=== PATIENT | male | born 1950 | race Caucasian/White ===

== ENCOUNTER 2019-05-14 15:05 | Emergency (ER) | payer OTHER ==
[~2019-05-14] VITALS: Ht 177 cm; Wt 109.8 kg
--- NOTE | 2019-05-14 15:25 | ED GU-Male ---
General Chief Complaint: - Urinary Stated Complaint: TROUBLE URINATING History of Present Illness Date Seen by Provider: May 14, 2019 Time Seen by Provider: 15:26 Initial Comments 68 yo male no prior visits in this sytem seems to describe chronic sx's of prostatism episodes of retention decreased stream etc. worsening in the last 4 days has HTN and diabetes, is already on on flomax has been dx'd with UTI finished antibiotic and diflucan about 10 d ago he states today he went several hours unable to void Apparently he presented to his primary physician's office having distress and high blood pressure, so sent to the ER However he says in the interim it "broke loose" and he was able to empty his bladder he is now comfortable again he feels the source of his difficulty is a recurrent infection he says the only time he ever had to have a catheter was when he had surgery in the past he's had lower back surgery but that was many years ago It also sounds like he has chronic balanitis has used nystatin on an off for months a urethral stricture might be a possibility Allergies and Home Medications Allergies Coded Allergies: No Known Drug Allergies (Unverified , 05/14/19) Home Medications Fluconazole 100 Mg Tablet, 100 MG PO DAILY Prescribed by: KEARA KESSLER on 05/14/191708 Levofloxacin 500 Mg Tablet, 500 MG PO DAILY Prescribed by: KEARA KESSLER on 05/14/191708 Patient Home Medication List Home Medication List Reviewed: Yes Review of Systems Review of Systems Constitutional: No chills, No fever EENTM: no symptoms reported Respiratory: no symptoms reported Cardiovascular: no symptoms reported Gastrointestinal: No abdominal pain, No diarrhea, No nausea, No vomiting Genitourinary: burning (from balanitis); denies discharge, denies dysuria; incontinence, urgency Musculoskeletal: no symptoms reported Skin: no symptoms reported Endocrine: No Symptoms Reported Hematologic/Lymphatic: No Symptoms Reported Past Zskmrqp-Kdrhln-[place] Hx Patient Social History Recent Foreign Travel: No Contact w/Someone Who Travel: No Physical Exam Vital Signs Vital Signs - First Documented 05/14/19 15:15 Temp 36.2 Pulse 89 Resp 16 B/P (MAP) 153/81 (105) Pulse Ox 94 Capillary Refill : Height, Weight, BMI Height: '" Weight: lbs. oz. kg; BMI Method: General Appearance: WD/WN, no apparent distress Neck: supple Cardiovascular: regular rate, rhythm Respiratory: lungs clear, normal breath sounds Gastrointestinal: non tender, soft Male: other (pt does not seem to have a distended or tender bladder CVAs are negative abdomina is obese and protuberant but benign exam + chronic looking balanitis) Back: no CVA tenderness Focused Exam Lactate Level 05/14/19 16:14: Lactic Acid Level 1.00 Lactic Acid Level Laboratory Tests Test 05/14/19 16:14 Lactic Acid Level 1.00 MMOL/L (0.50-2.00) Progress/Results/Core Measures Suspected Sepsis SIRS Temperature: Pulse: Respiratory Rate: Laboratory Tests 05/14/19 16:14: White Blood Count 13.2H Blood Pressure / Mean: 05/14/19 16:14: Lactic Acid Level 1.00 Laboratory Tests 05/14/19 16:14: Creatinine 0.90, Platelet Count 228 Results/Orders Lab Results Laboratory Tests Test 05/14/19 15:43 05/14/19 16:14 Range/Units Urine Color YELLOW Urine Clarity CLOUDY H Urine pH 6.0 5-9 Urine Specific [place] 1.015 L 1.016-1.022 Urine Protein NEGATIVE NEGATIVE Urine Glucose (UA) NEGATIVE NEGATIVE Urine Ketones NEGATIVE NEGATIVE Urine Nitrite POSITIVE H NEGATIVE Urine Bilirubin NEGATIVE NEGATIVE Urine Urobilinogen 0.2 < = 1.0 MG/DL Urine Leukocyte Esterase 3+ H NEGATIVE Urine RBC (Auto) 2+ H NEGATIVE Urine RBC 0-2 /HPF Urine WBC TNTC H /HPF Urine Squamous Epithelial Cells 0-2 /HPF Urine Crystals NONE /LPF Urine Bacteria LARGE H /HPF Urine Casts NONE /LPF Urine Mucus NEGATIVE /LPF Urine Culture Indicated YES White Blood Count 13.2 H 4.3-11.0 10^3/uL Red Blood Count 5.08 4.35-5.85 10^6/uL Hemoglobin 14.7 13.3-17.7 G/DL Hematocrit 43 40-54 % Mean Corpuscular Volume 85 80-99 FL Mean Corpuscular Hemoglobin 29 25-34 PG Mean Corpuscular Hemoglobin Concent 34 32-36 G/DL Red Cell Distribution Width 12.3 10.0-14.5 % Platelet Count 228 130-400 10^3/uL Mean Platelet Volume 9.5 7.4-10.4 FL Neutrophils (%) (Auto) 83 H 42-75 % Lymphocytes (%) (Auto) 9 L 12-44 % Monocytes (%) (Auto) 7 0-12 % Eosinophils (%) (Auto) 1 0-10 % Basophils (%) (Auto) 0 0-10 % Neutrophils # (Auto) 11.0 H 1.8-7.8 X 10^3 Lymphocytes # (Auto) 1.2 1.0-4.0 X 10^3 Monocytes # (Auto) 0.9 0.0-1.0 X 10^3 Eosinophils # (Auto) 0.1 0.0-0.3 10^3/uL Basophils # (Auto) 0.0 0.0-0.1 10^3/uL Sodium Level 139 135-145 MMOL/L Potassium Level 4.1 3.6-5.0 MMOL/L Chloride Level 102 98-107 MMOL/L Carbon Dioxide Level 23 21-32 MMOL/L Anion Gap 14 5-14 MMOL/L Blood Urea Nitrogen 15 7-18 MG/DL Creatinine 0.90 0.60-1.30 MG/DL Estimat Glomerular Filtration Rate > 60 BUN/Creatinine Ratio 17 Glucose Level 125 H 70-105 MG/DL Lactic Acid Level 1.00 0.50-2.00 MMOL/L Calcium Level 9.8 8.5-10.1 MG/DL My Orders Orders - KEARA KESSLER MD Bladder Scan (05/14/19 15:10) Urinalysis (05/14/19 15:25) Urine Culture (05/14/19 15:43) Iv Heplock-Insert (Order) (05/14/19 16:11) Cbc With Automated Diff (05/14/19 16:11) Basic Metabolic Panel (05/14/19 16:11) Levofloxacin 750 Mg/150 Ml Iv (Levaquin (05/14/19 16:15) Ns Iv 1000 Ml (Sodium Chloride 0.9%) (05/14/19 16:15) Blood Culture (05/14/19 16:11) Lactic Acid Analyzer (05/14/19 16:11) Blood Culture (05/14/19 16:38) Medications Given in ED Current Medications Medications Dose Ordered Sig/Alex Route Start Time Stop Time Status Last Admin Dose Admin Levofloxacin/ Dextrose 150 ml @ 100 mls/hr ONCE ONCE IV 05/14/19 16:15 05/14/19 17:44 05/14/19 16:55 100 MLS/HR Vital Signs/I&O 05/14/19 15:15 Temp 36.2 Pulse 89 Resp 16 B/P (MAP) 153/81 (105) Pulse Ox 94 Capillary Refill : Progress Note : Progress Note bladder scan 300mlUA - 1.015 + nitrite + leuk est TNTC WBC's and large bact Get blood cultures and lactate check CBC check blood sugar IV Levaquin has been ordered Patient does not have retention symptoms at this point is comfortable therefore it's thought best probably not to place a catheter as long as he continues to be able to void so as not to seed infection further Hemoglobin 14.7 white count 13,200 lactate 1.0 BMP neg Departure Impression Primary Impression: Urinary tract infection Qualified Codes: N30.01 - Acute cystitis with hematuria Disposition: HOME, SELF-CARE Condition: Stable Departure-Patient Inst. Decision time for Depature: 17:05 Patient Instructions: Urinary Tract Infection, Adult (DC), Urinary Obstruction (DC) Add. Discharge Instructions: We found urinary infection and you have had a chronic fungal infection, therefore an antibiotic prescription was written, as well as Diflucan, also pleased continue the flomax 0.4mg daily You may have some overgrowth of the prostate interfering with voiding or possibly a scarring or narrowing within the penis itself If you get to where you can't empty your bladder at all, you may need to have Arellano Catheter placed We strongly advise that you make an appointment and see a urologist as soon as you are able to arrange that Dr. Kang [phone] Scripts Fluconazole (Diflucan) 100 Mg Tablet 100 MG PO DAILY, #5 TAB Prov: KEARA KESSLER MD 05/14/19 Levofloxacin (Levaquin) 500 Mg Tablet 500 MG PO DAILY for 10 Days, #10 TAB Prov: KEARA KESSLER MD 05/14/19 KEARA KESSLER MD May 14, 2019 15:25
[2019-05-14 15:58] LABS: BACTERIA,URINE LARGE /HPF; BILIRUBIN,URINE NEGATIVE (NEGATIVE); CLARITY,URINE CLOUDY; COLOR,URINE YELLOW; GLUCOSE, URINE (UA) NEGATIVE (NEGATIVE); KETONES,URINE NEGATIVE (NEGATIVE); LEUKOCYTE ESTERASE ,URINE 3+ (NEGATIVE); NITRITE,URINE POSITIVE (NEGATIVE); PROTEIN,URINE NEGATIVE (NEGATIVE); RBC,URINE 0-2 /HPF; SQUAMOUS EPITHELIAL CELL,UR 0-2 /HPF; WBC,URINE TNTC /HPF
[2019-05-14] MEDS ORDERED: NS IV 1000 ML 1,000 ML IV SCH (16:15)
[2019-05-14] MEDS: LEVOFLOXACIN 750 MG/150 ML IV 150 ML IV ONE ×2 (16:40→16:55)
[2019-05-14 16:56] LABS: HEMATOCRIT 43 % (40-54); HEMOGLOBIN 14.7 G/DL (13.3-17.7); MEAN CORPUSCULAR HEMOGLOBIN 29 PG (25-34); MEAN CORPUSCULAR HGB CONC 34 G/DL (32-36); MEAN CORPUSCULAR VOLUME 85 FL (80-99); PLATELET COUNT 228 10^3/uL (130-400); RED CELL DISTRIBUTION WIDTH 12.3 % (10.0-14.5); WHITE BLOOD COUNT 13.2 10^3/uL (4.3-11.0)
[2019-05-14 16:57] LABS: BASOPHILS % (AUTO) 0 % (0-10); EOSINOPHILS # (AUTO) 0.1 10^3/uL (0.0-0.3); EOSINOPHILS % (AUTO) 1 % (0-10); LYMPHOCYTES # (AUTO) 1.2 X 10^3 (1.0-4.0); LYMPHOCYTES % (AUTO) 9 % (12-44); MEAN PLATELET VOLUME 9.5 FL (7.4-10.4); MONOCYTES # (AUTO) 0.9 X 10^3 (0.0-1.0); MONOCYTES % (AUTO) 7 % (0-12); NEUTROPHILS % (AUTO) 83 % (42-75)
[2019-05-14 17:02] LABS: CARBON DIOXIDE 23 MMOL/L (21-32); CHLORIDE 102 MMOL/L (98-107); POTASSIUM 4.1 MMOL/L (3.6-5.0); SODIUM 139 MMOL/L (135-145)
[2019-05-14 17:03] LABS: BUN/CREATININE RATIO 17; CALCIUM 9.8 MG/DL (8.5-10.1); GFR ESTIMATED > 60; GLUCOSE 125 MG/DL (70-105)
[2019-05-14] MEDS ORDERED: FLUC100T PO (17:09)
[2019-05-14] MEDS ORDERED: LEVO500T2 PO (17:09)
[2019-05-14 17:41] VITALS: BP 112/47
== END 2019-05-14 17:49 | disposition home or self-care (01) ==
LOC: EDUNIT# 15:05 → ER FS 15:07
DX: N39.0 Urinary tract infection, site not specified (principal); I10 Essential (primary) hypertension
CPT/HCPCS: 36415; 80048; 81000; 83605; 85025; 87040; 87077; 87088; 87186; 96361; 96365

== ENCOUNTER 2019-05-17 17:46 | Emergency (ER) | payer OTHER ==
[~2019-05-17] VITALS: Ht 177.8 cm; Wt 109.9 kg
[~2019-05-17 17:46] MED LIST: FLUC100T PO; LEVO500T2 PO
--- NOTE | 2019-05-17 18:36 | ED GU-Male ---
General Chief Complaint: - Urinary Stated Complaint: CATH PROBLEM History of Present Illness Date Seen by Provider: May 17, 2019 Time Seen by Provider: 18:00 Initial Comments Has had problems with intermittent urinary retention also has had fungal in fection on the distal head of his penis he is on Diflucan tamsulosin and levofloxacin. Was seen just the other day today felt full and like it was cramping but also had 134 cc on bladder scan Timing/Duration: this afternoon Severity/Quality: mild Location: suprapubic Radiation: none Prior Genitourinary Problems: similar symptoms Modifying Factors: Improves With Urinating Associated Symptoms: No fever/chills, No lower back pain Allergies and Home Medications Allergies Coded Allergies: No Known Drug Allergies (Unverified , 05/14/19) Home Medications Fluconazole 100 Mg Tablet, 100 MG PO DAILY Prescribed by: KEARA KESSLER on 05/14/191708 Levofloxacin 500 Mg Tablet, 500 MG PO DAILY Prescribed by: KEARA KESSLER on 05/14/19 170 Patient Home Medication List Home Medication List Reviewed: Yes Review of Systems Review of Systems Constitutional: No chills, No fever Genitourinary: denies burning; dysuria, frequency, pain, urgency Musculoskeletal: No joint swelling, No muscle pain Skin: No rash Past Mksaivb-Oufsmn-Lmiejd Hx Past Med/Social Hx: Reviewed Nursing Past Med/Soc Hx Patient Social History Alcohol Use: Denies Use Recreational Drug Use: No Smoking Status: Former Smoker Type Used: Cigarettes Former Smoker, Quit: Apr 15, 1999 2nd Hand Smoke Exposure: No Recent Foreign Travel: No Recent Hopitalizations: No Physical Abuse: No Sexual Abuse: No Mistreated: No Fear: No Seasonal Allergies Seasonal Allergies: No Past Medical History Surgeries: Yes (back surgery) Respiratory: No Cardiac: Yes Hypertension Neurological: No Genitourinary: Yes (urinary retention) Bladder Infection Gastrointestinal: No Musculoskeletal: Yes Chronic Back Pain Endocrine: No HEENT: No Cancer: No Psychosocial: No Integumentary: No Blood Disorders: No Physical Exam Vital Signs Capillary Refill : Height, Weight, BMI Height: '" Weight: lbs. oz. kg; 35.00 BMI Method: General Appearance: WD/WN, no apparent distress HEENT: PERRL/EOMI, TMs normal, pharynx normal Cardiovascular: regular rate, rhythm, no murmur Respiratory: lungs clear, normal breath sounds Gastrointestinal: non tender, soft Extremities: normal inspection, no pedal edema Neurologic/Psychiatric: normal mood/affect, oriented x 3 Skin: normal color, warm/dry Progress/Results/Core Measures Suspected Sepsis SIRS Temperature: Pulse: Respiratory Rate: Blood Pressure / Mean: Results/Orders Lab Results Laboratory Tests Test 05/17/19 18:25 Range/Units Urine Color YELLOW Urine Clarity CLEAR Urine pH 5.5 5-9 Urine Specific [place] 1.010 L 1.016-1.022 Urine Protein NEGATIVE NEGATIVE Urine Glucose (UA) NEGATIVE NEGATIVE Urine Ketones NEGATIVE NEGATIVE Urine Nitrite NEGATIVE NEGATIVE Urine Bilirubin NEGATIVE NEGATIVE Urine Urobilinogen 0.2 < = 1.0 MG/DL Urine Leukocyte Esterase 1+ H NEGATIVE Urine RBC (Auto) NEGATIVE NEGATIVE Urine RBC NONE /HPF Urine WBC 5-10 H /HPF Urine Squamous Epithelial Cells 2-5 /HPF Urine Crystals NONE /LPF Urine Bacteria FEW H /HPF Urine Casts NONE /LPF Urine Mucus NEGATIVE /LPF Urine Culture Indicated YES My Orders Orders - ALEE ECHAVARRIA JR, MD Urinalysis (05/17/19 18:31) Urine Culture (05/17/19 18:25) Vital Signs/I&O Capillary Refill : Progress Note : Time: 19:01 Progress Note Feel like the patient's antibiotic treatments are adequate is on the tamsulosin didn't feel like he has residual and does need to see the urologist which he is set up for will continue the antibiotic and follow with his PCP in the next week Departure Impression Primary Impression: Urinary tract infection Qualified Codes: N30.00 - Acute cystitis without hematuria Disposition: HOME, SELF-CARE Condition: Stable Departure-Patient Inst. Referrals: EMERALD GOLD DO (PCP/Family) Primary Care Physician Patient Instructions: Urinary Tract Infection, Adult (DC) ALEE ECHAVARRIA JR, MD May 17, 2019 18:36
[2019-05-17 18:48] LABS: BACTERIA,URINE FEW /HPF; BILIRUBIN,URINE NEGATIVE (NEGATIVE); CLARITY,URINE CLEAR; COLOR,URINE YELLOW; GLUCOSE, URINE (UA) NEGATIVE (NEGATIVE); KETONES,URINE NEGATIVE (NEGATIVE); LEUKOCYTE ESTERASE ,URINE 1+ (NEGATIVE); NITRITE,URINE NEGATIVE (NEGATIVE); PH,URINE 5.5 (5-9); PROTEIN,URINE NEGATIVE (NEGATIVE)
[2019-05-17 19:07] VITALS: BP 194/62
== END 2019-05-17 19:07 | disposition home or self-care (01) ==
LOC: EDUNIT# 17:46 → ER FS 17:48
DX: N39.0 Urinary tract infection, site not specified (principal); Z87.891 Personal history of nicotine dependence
CPT/HCPCS: 81000; 87088; 99282

== ENCOUNTER → 2019-06-09 | Outpatient (CLI) | payer MEDICARE, OTHER ==
--- NOTE | 2019-06-09 10:20 | Diagnostic Imaging Report ---
PROCEDURE: CT abdomen and pelvis without contrast. TECHNIQUE: Multiple contiguous axial images were obtained through the abdomen and pelvis without the use of intravenous contrast. Auto Exposure Controls were utilized during the CT exam to meet ALARA standards for radiation dose reduction. INDICATION: Frequent UTIs. FINDINGS: There is some mild thickening of the bhat of the urinary bladder. No definite perivesical edema, however cystitis could not be excluded. Equivocal findings for a punctate 1 mm nonobstructing stone within the right renal midpole. No definite radiodense urolithiases. No perinephric or periureteric edema, urinoma, or other fluid collection. There is no bowel, biliary, or urinary tract obstruction. Liver, spleen, adrenals, pancreas, and gallbladder are unremarkable. The atherosclerotic aorta is nonaneurysmal. IMPRESSION: Thickening of the bhat of the urinary bladder, cystitis not excluded. Equivocal findings for punctate nonobstructing solitary 1 mm right renal calculus. No other potential urinary tract pathology revealed. Dictated by: Dictated on workstation # [id number]
== END ==
LOC: RAD FS 09:34
PROVIDERS: ATTEND Urology
DX: N20.0 Calculus of kidney (principal); N32.89 Other specified disorders of bladder
CPT/HCPCS: 74176

== ENCOUNTER 2019-06-28 11:28 | Emergency (ER) | payer MEDICARE ==
[~2019-06-28] VITALS: Ht 176 cm; Wt 110.9 kg
--- NOTE | 2019-06-28 11:42 | ED GU-Male ---
General Stated Complaint: UNABLE TO URINATE History of Present Illness Date Seen by Provider: Jun 28, 2019 Time Seen by Provider: 11:41 Initial Comments This patient is a 68-year-old male that has a long history of difficulty urinating. Patient is followed by Dr. Lupe Alcala. Urology. Patient has a scheduled appointment tomorrow. The patient has had 3 Arellano catheterization as many weeks due to urinary retention and difficulty urinating. Patient's last catheter was removed 1 week ago. Patient states unable to urinate as "days. Will do medical evaluation treat as needed. Timing/Duration: getting worse, changing over time Severity/Quality: moderate Location: suprapubic Radiation: none Activities at Onset: none Prior Genitourinary Problems: similar symptoms Allergies and Home Medications Allergies Coded Allergies: No Known Drug Allergies (Unverified , 05/14/19) Home Medications Fluconazole 100 Mg Tablet, 100 MG PO DAILY Prescribed by: KAERA KESSLER on 05/14/191708 Levofloxacin 500 Mg Tablet, 500 MG PO DAILY Prescribed by: KEARA KESSLER on 05/14/191708 Patient Home Medication List Home Medication List Reviewed: Yes Review of Systems Review of Systems Constitutional: no symptoms reported, see HPI; No chills, No diaphoresis, No dizziness, No fever, No malaise, No weakness, No weight gain, No weight loss, No other EENTM: No see HPI, No no symptoms reported, No ear discharge, No hearing loss, No ear pain, No blurred vision, No double vision, No eye pain, No tearing, No vision loss, No dental problems, No hoarseness, No mouth pain, No mouth swellin g, No epistaxis, No nose congestion, No nose pain, No throat pain, No throat swelling, No other Respiratory: no symptoms reported; No see HPI, No cough, No dyspnea on exertion, No hemoptysis, No orthopnea, No phlegm, No short of breath, No stridor, No wheezing, No other Cardiovascular: no symptoms reported; No see HPI, No chest pain, No edema, No Hx of Intervention, No palpitations, No syncope, No vascular heart diseas, No other Gastrointestinal: No RUQ, No LUQ, No RLQ, No LLQ; no symptoms reported; No see HPI, No abdominal pain, No constipation, No diarrhea, No dysphagia, No hematemesis, No heartburn, No jaundice, No loss of appetite, No melena, No nausea, No vomiting, No other Genitourinary: denies no symptoms reported; see HPI; denies burning, denies discharge, denies dysuria, denies frequency, denies flank pain, denies hematuria, denies incontinence, denies pain; urgency; denies other Past Eguvdcw-Rbwxdg-Sxyrpc Hx Patient Social History Type Used: Cigarettes Former Smoker, Quit: Apr 15, 1999 2nd Hand Smoke Exposure: No Recent Hopitalizations: No Seasonal Allergies Seasonal Allergies: No Past Medical History Surgeries: Yes (back surgery) Respiratory: No Cardiac: Yes Hypertension Neurological: No Genitourinary: Yes (urinary retention) Bladder Infection Gastrointestinal: No Musculoskeletal: Yes Chronic Back Pain Endocrine: No HEENT: No Cancer: No Psychosocial: No Integumentary: No Blood Disorders: No Physical Exam Vital Signs Vital Signs - First Documented 06/28/19 11:33 Temp 37.0 Pulse 88 Resp 18 B/P (MAP) 184/102 (129) Pulse Ox 98 O2 Delivery Room Air Capillary Refill : Height, Weight, BMI Height: '" Weight: lbs. oz. kg; 34.00 BMI Method: General Appearance: WD/WN, no apparent distress HEENT: PERRL/EOMI, normal ENT inspection, TMs normal, pharynx normal Neck: non-tender, full range of motion, supple, normal inspection Cardiovascular: normal peripheral pulses, regular rate, rhythm, no edema, no gallop, no JVD, no murmur Respiratory: chest non-tender, lungs clear, normal breath sounds, no respiratory distress, no accessory muscle use Skin: normal color, warm/dry Progress/Results/Core Measures Suspected Sepsis SIRS Temperature: Pulse: Respiratory Rate: Blood Pressure / Mean: Results/Orders My Orders Orders - BRADFORD SANDOVAL MD Ua Culture If Indicated (06/28/19 11:39) Catheter(Urinary) Insert & Ass (06/28/19 11:39) Vital Signs/I&O 06/28/19 11:33 Temp 37.0 Pulse 88 Resp 18 B/P (MAP) 184/102 (129) Pulse Ox 98 O2 Delivery Room Air Capillary Refill : Progress Note : Time: 12:25 Progress Note Discussed at length with Dr. Rodriguez alaina Guerrero. He is agreed to accept this patient in the emergency department. Patient in multiple times for catheter placement in the emergency department with significant resistance just inside the meatus. Small scattered lesions 14 [place]. Also discussed at length with Dr. Edwards ER physician also has accepted the patient. Departure Impression Primary Impression: Urinary retention Disposition: XF [facility] HOSP Condition: Stable Transfer Transfer Reason: Exceeds level of care Time Spoke to Accepting Phy: 12:20 Transfer Progress Notes I discussed at length with Dr. Rodriguez urology and Dr. Sinha ER physician Edilson Guerrero they have accepted this patient to the emergency department Method of Transfer: EMS Departure-Patient Inst. Referrals: EMERALD GOLD DO (PCP/Family) Primary Care Physician Patient Instructions: Urinary Retention BRADFORD SANDOVAL MD Jun 28, 2019 11:42
--- NOTE | 2019-06-28 11:50 | NUR ---
Urinary catheter insertion attempted at this time. Intial attempt of 16F urethral catheter unsuccessful as resistance was almost immediately met. 16F coude also attempted and unsuccesful as well as smaller 14F catheter.
[2019-06-28 12:45] VITALS: BP 179/96
[2019-06-28 12:51] LABS: BILIRUBIN,URINE NEGATIVE (NEGATIVE); CLARITY,URINE CLEAR; COLOR,URINE YELLOW; GLUCOSE, URINE (UA) NEGATIVE (NEGATIVE); KETONES,URINE NEGATIVE (NEGATIVE); LEUKOCYTE ESTERASE ,URINE TRACE (NEGATIVE); NITRITE,URINE NEGATIVE (NEGATIVE); PROTEIN,URINE NEGATIVE (NEGATIVE)
[2019-06-28 12:52] LABS: BACTERIA,URINE NEGATIVE /HPF; SQUAMOUS EPITHELIAL CELL,UR 0-2 /HPF; WBC,URINE 0-2 /HPF
--- OUTSIDE RECORDS SUMMARY | 2019-06-29 01:12 | XMS REPORT | Continuity of Care Document ---
Author Organization Unknown Address Unknown Phone Unavailable Allergies Active Description Code Type Severity Reaction Onset Reported/Identified Relationship to Patient Clinical Status Yes No Known Drug Allergies [id number] Drug Allergy Unknown N/A 05/14/2019 Medications There is no data. Problems Date Dx Coded Attending Type Code Diagnosis Diagnosed By 05/14/2019 KEARA KESSLER MD Ot I10 ESSENTIAL (PRIMARY) HYPERTENSION 05/14/2019 KEARA KESSLER MD Ot N39. 0 URINARY TRACT INFECTION, SITE NOT SPECIF 05/14/2019 KEARA KESSLER MD Ot R30. 0 DYSURIA 05/17/2019 ALEE ECHAVARRIA MD Ot N39.0 URINARY TRACT INFECTION, SITE NOT SPECIF 05/17/2019 ALEE ECHAVARRIA MD L Ot R33.9 RETENTION OF URINE, UNSPECIFIED 05/17/2019 JERICHO ABBASI ALEE L Ot Z87.891 PERSONAL HISTORY OF NICOTINE DEPENDENCE 05/18/2019 KEARA KESSLER MD Ot I10 ESSENTIAL (PRIMARY) HYPERTENSION 05/18/2019 KEARA KESSLER MD Ot N39. 0 URINARY TRACT INFECTION, SITE NOT SPECIF 05/18/2019 KEARA KESSLER MD Ot R30. 0 DYSURIA 06/12/2019 BRANDON MILLER MD Ot N20.0 CALCULUS OF KIDNEY 06/12/2019 BRANDON MILLER MD Ot N32.8 9 OTHER SPECIFIED DISORDERS OF BLADDER 06/24/2019 BRANDON MILLER MD Ot N20.0 CALCULUS OF KIDNEY 06/24/2019 BRANDON MILLER MD Ot N32.8 9 OTHER SPECIFIED DISORDERS OF BLADDER Procedures There is no data. Results Test Result Range Complete urinalysis with reflex to cultu re - 05/14/19 15:43 Urine color determination YELLOW NRG Urine clarity determination CLOUDY NR G Urine pH measurement by test strip 6.0 5-9 Specific gravity of urine by test strip 1.015 1.016-1.022 Urine protein assay by test strip, semi-quantitative NEGATIVE NEGATIVE Urine glucose detection by automated test strip NE GATIVE NEGATIVE Erythrocytes detection in urine sediment by light micr oscopy 2+ NEGATIVE Urine ketones detection by automated test strip NE GATIVE NEGATIVE Urine nitrite detection by test strip POSITIVE NEGATIVE Urine total bilirubin detection by test strip NEGA TIVE NEGATIVE Urine urobilinogen measurement by automated test strip (mass/volume) 0.2 mg/dL < = 1.0 Urine leukocyte esterase detection by dipstick 3+ NEGATIVE Automated urine sediment erythrocyte cou nt by microscopy (number/high power field) [HPF] NRG Automated urine sediment leukocyte count by microscopy (number/high power field) TNTC NRG Bacteria detection in urine sediment by light microsco py LARGE NRG Squamous epithelial cells detection in u rine sediment by light microscopy 0-2 NRG Crystals detection in urine sediment by light microsco py NONE NRG Casts detection in urine sediment by light microscopy NONE NRG Mucus detection in urine sediment by light microscopy NEGATIVE NRG Complete urinalysis with reflex to culture YES NRG Bacterial urine culture - 05/14/19 15:43 Bacterial urine culture [id number] NRG COLONY COUNT >100,000/ML NRG FTX;REPORTABLE SUSCEPTIBILITY REPORTED 05/16 13:05 NRG FREE TEXT ENTRY 2 PRELIM RAPID ID BY P 05-15-19, [id number] NRG FREE TEXT ENTRY 3 ID CONFIRMED NRG Dirithromycin susceptibility test by dis k diffusion - 05/14/19 15:43 Gentamicin susceptibility test by minimum inhibitory c oncentration <= NRG Trimethoprim/sulfamethoxazole susceptibi lity test by minimum inhibitoryconcentration <= NRG Levofloxacin susceptibility test by minimum inhibitory concentration 2 NRG Ampicillin susceptibility test by minimum inhibitory c oncentration <= NRG Cefazolin susceptibility test by minimum inhibitory co ncentration 2 NRG Ceftriaxone susceptibility test by minimum inhibitory concentration <= NRG Ciprofloxacin susceptibility test by minimum inhibitor y concentration 2 NRG Meropenem susceptibility test by minimum inhibitory co ncentration <= NRG Nitrofurantoin susceptibility test by mi nimum inhibitory concentration 32 NRG Amoxicillin and clavulanate potassium susc ELENA = NRG Complete blood count (CBC) with automate d white blood cell (WBC) differential - 05/14/19 16:14 Blood leukocytes automated count (number/volume) 13.2 10*3/uL 4.3-11.0 Blood erythrocytes automated count (number/volume) 5.08 10*6/uL 4.35-5.85 Venous blood hemoglobin measurement (mass/volume) 14.7 g/dL 13.3-17.7 Blood hematocrit (volume fraction) 43 % 40-54 Automated erythrocyte mean corpuscular volume 85 [ foz_us] 80-99 Automated erythrocyte mean corpuscular h emoglobin (mass per erythrocyte) 29 pg 25-34 Automated erythrocyte mean corpuscular h emoglobin concentration measurement (mass/volume) 34 g/dL 32-36 Automated erythrocyte distribution width ratio 12. 3 % 10.0- 14.5 Automated blood platelet count (count/volume) 228 10*3/uL 130-400 Automated blood platelet mean volume measurement 9.5 [foz_us] 7.4-10.4 Automated blood neutrophils/100 leukocytes 83 % 42-75 Automated blood lymphocytes/100 leukocytes 9 % 12-44 Blood monocytes/100 leukocytes 7 % 0-12 Automated blood eosinophils/100 leukocytes 1 % 0-10 Automated blood basophils/100 leukocytes 0 % 0-10 Blood neutrophils automated count (number/volume) 11.0 10*3 1.8-7.8 Blood lymphocytes automated count (number/volume) 1.2 10*3 1.0-4.0 Blood monocytes automated count (number/volume) 0. 9 10*3 0.0-1.0 Automated eosinophil count 0.1 10*3/uL 0 .0-0.3 Automated blood basophil count (count/volume) 0.0 10*3/uL 0.0-0.1 Blood lactic acid measurement (moles/vol ume) - 05/14/19 16:14 Blood lactic acid measurement (moles/volume) 1.00 mmol/L 0.50-2.00 Whole blood basic metabolic panel - 04/17 16:14 Serum or plasma sodium measurement (moles/volume) 139 mmol/L 135-145 Serum or plasma potassium measurement (moles/volume) 4.1 mmol/L 3.6-5.0 Serum or plasma chloride measurement (moles/volume) 102 mmol/L 98-107 Carbon dioxide 23 mmol/L 21-32 Serum or plasma anion gap determination (moles/volume) 14 mmol/L 5-14 Serum or plasma urea nitrogen measurement (mass/volume ) 15 mg/dL 7-18 Serum or plasma creatinine measurement (mass/volume) 0.90 mg/dL 0.60-1.30 Serum or plasma urea nitrogen/creatinine mass ratio 17 NRG Serum or plasma creatinine measurement w ith calculation of estimated glomerular filtration rate > NRG Serum or plasma glucose measurement (mass/volume) 125 mg/dL 70-105 Serum or plasma calcium measurement (mass/volume) 9.8 mg/dL 8.5-10.1 Bacterial blood culture - 05/14/19 16:14 Bacterial blood culture NG NRG Bacterial blood culture - 05/14/19 16:38 Bacterial blood culture NG NRG Complete urinalysis with reflex to cultu re - 05/17/19 18:25 Urine color determination YELLOW NRG Urine clarity determination CLEAR NR G Urine pH measurement by test strip 5.5 5-9 Specific gravity of urine by test strip 1.010 1.016-1.022 Urine protein assay by test strip, semi-quantitative NEGATIVE NEGATIVE Urine glucose detection by automated test strip NE GATIVE NEGATIVE Erythrocytes detection in urine sediment by light micr oscopy NEGATIVE NEGATIVE Urine ketones detection by automated test strip NE GATIVE NEGATIVE Urine nitrite detection by test strip NEGATIVE NEGATIVE Urine total bilirubin detection by test strip NEGA TIVE NEGATIVE Urine urobilinogen measurement by automated test strip (mass/volume) 0.2 mg/dL < = 1.0 Urine leukocyte esterase detection by dipstick 1+ NEGATIVE Automated urine sediment erythrocyte cou nt by microscopy (number/high power field) NONE NRG Automated urine sediment leukocyte count by microscopy (number/high power field) [HPF] NRG Bacteria detection in urine sediment by light microsco py FEW NRG Squamous epithelial cells detection in u rine sediment by light microscopy 2-5 NRG Crystals detection in urine sediment by light microsco py NONE NRG Casts detection in urine sediment by light microscopy NONE NRG Mucus detection in urine sediment by light microscopy NEGATIVE NRG Complete urinalysis with reflex to culture YES NRG Bacterial urine culture - 05/17/19 18:25 Bacterial urine culture NG NRG Complete urinalysis with reflex to cultu re - 06/28/19 12:40 Urine color determination YELLOW NRG Urine clarity determination CLEAR NR G Urine pH measurement by test strip 6.0 5-9 Specific gravity of urine by test strip 1015 1.016-1.022 Urine protein assay by test strip, semi-quantitative NEGATIVE NEGATIVE Urine glucose detection by automated test strip NE GATIVE NEGATIVE Erythrocytes detection in urine sediment by light micr oscopy 2+ NEGATIVE Urine ketones detection by automated test strip NE GATIVE NEGATIVE Urine nitrite detection by test strip NEGATIVE NEGATIVE Urine total bilirubin detection by test strip NEGA TIVE NEGATIVE Urine urobilinogen measurement by automated test strip (mass/volume) 0.2 mg/dL < = 1.0 Urine leukocyte esterase detection by dipstick TRA CE NEGATIVE Automated urine sediment erythrocyte cou nt by microscopy (number/high power field) [HPF] NRG Automated urine sediment leukocyte count by microscopy (number/high power field) [HPF] NRG Bacteria detection in urine sediment by light microsco py NEGATIVE NRG Squamous epithelial cells detection in u rine sediment by light microscopy 0-2 NRG Crystals detection in urine sediment by light microsco py NONE NRG Casts detection in urine sediment by light microscopy NONE NRG Mucus detection in urine sediment by light microscopy NONE NRG Complete urinalysis with reflex to culture NO NRG Encounters ACCT No. Visit Date/Time Discharge Status Pt. Type Provider Facility Loc./Unit Complaint [id number] 06/09/2019 09:34:00 23:59:59 CLS Outpatient ANGELA ABBASI, BRANDON Doyle [facility] RAD FS H/O UTI [id number] 05/17/2019 17:48:00 19:07:00 DIS Emergency JERICHO ABBASI, ALEE Pack [facility] ER FS CATH PROBLEM [id number] 05/14/2019 15:07:00 17:49:00 DIS Emergency CHECO ABBASI, KEARA Boothe [facility] ER FS TROUBLE URINATING [id number] 06/28/2019 12:52:00 Document Registration
[2019-06-30] MEDS ORDERED: SIMV80TA21 PO (08:04)
[2019-06-30] MEDS ORDERED: LISI10TA2 PO (08:04)
[2019-06-30] MEDS ORDERED: OMEG-154 PO (08:04)
[2019-06-30] MEDS ORDERED: TMSL.4C PO (08:04)
[2019-06-30] MEDS ORDERED: METF-397 PO (08:04)
== END 2019-06-28 12:45 | disposition short-term general hospital (02) ==
LOC: EDUNIT# 11:28 → ER FS 11:30
DX: R33.9 Retention of urine, unspecified (principal); Z87.891 Personal history of nicotine dependence
CPT/HCPCS: 81000

== ENCOUNTER → 2019-11-09 | Outpatient (CLI) | payer MEDICARE ==
[~2019-11-09] MED LIST changes: +LISI10TA2 PO; +METF-397 PO; +OMEG-154 PO; +SIMV80TA21 PO; +TMSL.4C PO
[2019-11-09 17:03] LABS: ALANINE AMINOTRANSFERASE 58 U/L (0-55); ALKALINE PHOSPHATASE 50 U/L (40-136); BILIRUBIN,TOTAL 0.2 MG/DL (0.1-1.0); BUN/CREATININE RATIO 18; CALCIUM 9.3 MG/DL (8.5-10.1); CARBON DIOXIDE 24 MMOL/L (21-32); CHLORIDE 103 MMOL/L (98-107); GFR ESTIMATED > 60; GLUCOSE 104 MG/DL (70-105); POTASSIUM 4.4 MMOL/L (3.6-5.0); SODIUM 140 MMOL/L (135-145); TOTAL PROTEIN 6.2 GM/DL (6.4-8.2)
[2019-11-09 17:19] LABS: HEMATOCRIT 39 % (40-54); HEMOGLOBIN 13.1 G/DL (13.3-17.7); MEAN CORPUSCULAR HEMOGLOBIN 29 PG (25-34); MEAN CORPUSCULAR VOLUME 89 FL (80-99)
[2019-11-09 17:20] LABS: BASOPHILS % (AUTO) 1 % (0-10); EOSINOPHILS # (AUTO) 0.2 10^3/uL (0.0-0.3); EOSINOPHILS % (AUTO) 2 % (0-10); LYMPHOCYTES # (AUTO) 2.2 X 10^3 (1.0-4.0); LYMPHOCYTES % (AUTO) 20 % (12-44); MEAN CORPUSCULAR HGB CONC 33 G/DL (32-36); MEAN PLATELET VOLUME 9.3 FL (7.4-10.4); MONOCYTES # (AUTO) 0.7 X 10^3 (0.0-1.0); MONOCYTES % (AUTO) 6 % (0-12); NEUTROPHILS # (AUTO) 7.7 X 10^3 (1.8-7.8); NEUTROPHILS % (AUTO) 70 % (42-75); PLATELET COUNT 338 10^3/uL (130-400); RED CELL DISTRIBUTION WIDTH 12.4 % (10.0-14.5)
[2019-11-09 17:21] LABS: BASOPHILS # (AUTO) 0.1 10^3/uL (0.0-0.1); ERYTHROCYTE SEDIMENTATION RATE 37 MM/HR (0-30)
== END ==
LOC: LAB FS 16:07
PROVIDERS: ATTEND Emergency Medicine
DX: N39.0 Urinary tract infection, site not specified (principal); E11.9 Type 2 diabetes mellitus without complications
CPT/HCPCS: 36415; 80053; 85025; 85652; 86141